=== PATIENT | female | born 1980 | race Caucasian/White ===

== ENCOUNTER 2017-10-19 11:00 | Day surgery (SDC) | payer OTHER ==
[~2017-10-19] VITALS: Ht 165.1 cm; Wt 76.7 kg
[~2017-10-19 11:00] MED LIST: ABILIFY2 MG PO; ALLEGRA60 MG PO; ALPRAZOLAM0.5 MG PO; CELEXA20 MG PO; LEVONEST1 EACH PO; LEXAPRO20 MG PO; METHYLPHENIDATE10 MG PO; NEURONTIN300 MG PO; NORCO 5-325 TA1 EACH PO; OMEPRAZOLE20 MG PO; PROPRANOLOL HCL10 MG PO; SUMATRIPTAN SUC50 MG PO; WELLBUTRIN SR100 MG PO
[2017-10-19] MEDS ORDERED: OXYCODON-ACETA1 EAC2 PO (14:34)
[2017-10-19] MEDS ORDERED: IBUPROFEN600 MG PO (14:34)
[2017-10-19] MEDS ORDERED: MAPAP325 MG PO (14:34)
--- NOTE | 2017-10-19 14:36 | NUR ---
10/19/17 1436 Kristi Alonso 1416 PT ARRIVED TO PACU DROWSY RESP EVEN AND UNLABORED ON 6L VIA MASK. PT REPORTS 5/10 PAIN AND IS MOANING. PT REORIENTED TO PACU. 1423 PAIN MEDICATION GIVEN PER EMAR. 1430 PT ASLEEP AND MORE RELAXED IN BED. PT NOT GRIMACING. 1433 PT JANE TO VERBAL STIMULI AND REPORTS PAIN 3/10 AND TOLERABEL. O2 MASK REMOVED, O2 SAT 95%.
--- NOTE | 2017-10-19 15:09 | NUR ---
ICED WATER AND JELLO GIVEN. PT IS EATING THAT AND TOLERATING IT WELL. PRN GIVEN FOR PAIN.
--- NOTE | 2017-10-19 15:52 | NUR ---
OXYGEN TURNED OFF. PT UP TO THE BR W/RN STANDBY. PT AMBULATES WELL AND DENIES DIZZINESS. PT VOIDS 800 ML CLEAR YELLOW URINE AND REQ DC HOME.
--- NOTE | 2017-10-19 16:25 | NUR ---
LE 1610: DC INSTRUCTIONS GIVEN AND PT VERBALIZES UNDERSTANDING. PT DRESSES SELF AND TOLERATES THAT WELL. PT TRANSFERS SELF TO WC AND PERSONAL VEHICLE WELL AND IS DC HOME W/SPOUSE.
--- NOTE | 2017-10-21 22:00 | OR ---
[facility] [address], [place] [address] Signed DATE OF OPERATION: 10/19/2017 SURGEON: Jhonatan Jones MD PREOPERATIVE DIAGNOSES: 1. Acalculous cholecystitis (epigastric and right subcostal pain, CCK HIDA test 25%). 2. Mixed anxiety and depressive disorder. POSTOPERATIVE DIAGNOSES: 1. Acalculous cholecystitis (epigastric and right subcostal pain, CCK HIDA test 25%). 2. Mixed anxiety and depressive disorder. PROCEDURES PERFORMED: 1. Laparoscopic cholecystectomy with intraoperative cholangiogram. 2. Surgeon-directed fluoroscopy. ANESTHESIA: General endotracheal, Franchesca Danie, SECURITY AND PRIVACY CONSULTANT, and local Marcaine 0.25% with epinephrine 20 mL. INDICATIONS FOR PROCEDURE: This 37-year-old white woman is a patient of Bebe Buitrago and has been evaluated by me number of months ago with upper abdominal pain. Evaluation had included gallbladder ultrasound, which was normal and CCK HIDA test, which showed an ejection fraction of only 25%. Concern was maintained this may be related to irritable bowel syndrome rather than the gallbladder, however. She was given a low FODMAP diet, which she was markedly improved upon and therefore plans for cholecystectomy were withheld at that time. Time has gone on and she continues to have or at least has recurring or increasingly painful right subcostal epigastric pain, more suggestive of biliary colic at this point. On that basis, I have offered cholecystectomy. She understands the risks of bleeding, infection, bile duct injury, need for open procedure, and most importantly failure to cure her symptoms. If she does have underlying irritable bowel syndrome, then cholecystectomy will not improve that particularly, but may improve her biliary colic type symptoms and we are optimistic that might be the case. On the basis of the limitations of what may be of benefit, she wishes to proceed with cholecystectomy at this time. FINDINGS: The gallbladder was chronically inflamed. There were some omental adhesions to its Electronically Signed By: JHONATAN JONES MD 10/21/17 2200 PATIENT NAME: ZITA ALDRICH OPERATIVE REPORT DATE OF : 78 REPORT #: [id number] PHYSICIAN: JHONATAN JONES MD PCP: BEBE BUITRAGO REPORT IS CONFIDENTIAL AND NOT TO BE RELEASED WITHOUT AUTHORIZATION [facility] [address] [place], [place] [address] Signed undersurface. Once excised, the gallbladder had chronic inflammatory appearance of mucosa, but no sign of stones. Cholangiogram was normal. The liver was normal. DESCRIPTION OF PROCEDURE: The patient was brought to the operating room, given a general endotracheal anesthetic. Preoperative antibiotic Ancef was given. Sequential compression device stockings were used and heparin subcutaneously administered. The abdomen was prepared with a chlorhexidine solution and draped sterilely. An infraumbilical incision was made and using an open Ashanti cannula technique, pneumoperitoneum was achieved to a level of 14 mmHg of carbon dioxide gas. Intraabdominal inspection showed no sign of ascites or carcinomatosis. The gallbladder had an appearance of chronic inflammation. Three additional trocars were placed in usual configuration in the subxiphoid, right midclavicular, and right anterior axillary line. The gallbladder was elevated cephalad and omental adhesions were taken down from the gallbladder with blunt and electrocautery dissection. The gallbladder was elevated more fully and the infundibulum was grasped and retracted laterally. Using blunt and electrocautery dissection, the triangle of Calot was dissected free identifying well the cystic duct. A clip was applied across the cystic duct gallbladder junction and a transverse choledochotomy was made in the cystic duct. Retrograde milking of the cystic duct showed clear bile. Using the Reis type cholangiocatheter, intraoperative cholangiography was undertaken showing free flow of contrast in the biliary tree with prompt emptying into the duodenum. There was no sign of filling defect, biliary anomalies, or other problem. A small pancreatogram was noted as well. It too was normal. The catheter was removed and the cystic duct was triply clipped and divided. The gallbladder was then dissected free in a retrograde fashion using electrocautery. The gallbladder was extracted through the infraumbilical port site without problem, opened on the back table, and found to have chronic inflammatory appearance of mucosa, but no sign of stones or neoplasm. Irrigation was undertaken in subhepatic cyst space. One area had a small amount of oozing was secured with electrocautery and few additional clips. Excess irrigation fluid was suctioned free and the trocars were then removed under direct visualization. The right lower abdominal 5-mm trocar site did require small amount of electrocautery for complete hemostasis. Once hemostasis was assured, plans were made for closure. The infraumbilical fascial incision was reapproximated with interrupted #0 Vicryl suture. All wounds were copiously irrigated with saline solution. A 20 mL of 0.25% Marcaine with epinephrine was injected locally. The skin was then closed with interrupted #3-0 Vicryl. Steri-Strips were applied. The patient was ultimately extubated and transferred to recovery room in good condition having suffered no complications. Sponge, needle, and instruments counts were reported as Electronically Signed By: JHONATAN JONES MD 10/21/17 2200 PATIENT NAME: JIMMIE ALDRICHN NICOLLE OPERATIVE REPORT DATE OF : 78 REPORT #: [id number] PHYSICIAN: JHONATAN JONES MD PCP: BEBE BUITRAGO REPORT IS CONFIDENTIAL AND NOT TO BE RELEASED WITHOUT AUTHORIZATION [place] [id number] [place], [place] [address] Signed correct x3. MD JUNG Hodges/TRIP /[id number] cc: COREY Pollard Copies: BEBE BUITRAGO ~ Electronically Signed By: JHONATAN JONES MD 10/21/172199 PATIENT NAME: ZITA ALDRICH OPERATIVE REPORT DATE OF : 78 REPORT #: [id number] PHYSICIAN: JHONATAN JONES MD PCP: BEBE BUITRAGO REPORT IS CONFIDENTIAL AND NOT TO BE RELEASED WITHOUT AUTHORIZATION
== END 2017-10-19 16:20 | disposition home or self-care (01) ==
LOC: DS 11:00
PROVIDERS: Surgery
PROC: BF13YZZ Fluoroscopy of Gallbladder and Bile Ducts using Other Contrast (ICD-10-PCS; 2017-10-19)
PROC: 0FT44ZZ Resection of Gallbladder, Percutaneous Endoscopic Approach (ICD-10-PCS; principal; 2017-10-19 12:45)
DX: K81.1 Chronic cholecystitis (principal); F41.8 Other specified anxiety disorders; I10 Essential (primary) hypertension; K58.0 Irritable bowel syndrome with diarrhea; Z79.899 Other long term (current) drug therapy
CPT/HCPCS: 74300; J0690; J1100; J1644; J1885; J2250; J2405; J2704; J3010; J7120; Q9967

== ENCOUNTER 2018-12-07 08:33 | Observation (INO) | payer OTHER ==
[~2018-12-07] VITALS: Ht 167.6 cm; Wt 71.5 kg
[~2018-12-07 08:33] MED LIST changes: +IBUPROFEN600 MG PO; -LEVONEST1 EACH PO; +MAPAP325 MG PO; +NUVARING VAGIN1 EACH VAGINAL; +OXYCODON-ACETA1 EAC2 PO; -WELLBUTRIN SR100 MG PO; +WELLBUTRIN XL300 MG PO
--- OUTSIDE RECORDS SUMMARY | 2018-12-07 08:36 | XMS ---
PreManage Notification: ZITA ALDRICH Security Terminal System Operator Events No recent Security Events currently on file [facility] There are no care providers on record at this time. Scarlett has no Care Guidelines for this patient. Mariah VISIT COUNT (12 MO.) 1 ISIDRA Guillen TOTAL 1 NOTE: Visits indicate total known visits. ED/UCC VISIT TRACKING (12 MO.) 12/07/2018 08:33 ISIDRA Lizama OR TYPE: Emergency COMPLAINT: - ABD PAIN INPATIENT VISIT TRACKING (12 MO.) No inpatient visits to display in this time frame [email or web address]
--- NOTE | 2018-12-07 13:49 | NUR ---
PT ARRIVES TO 122 VIA STRETCHER FROM ED. PT ABLE TO TRANSFER SELF FROM STRETCHER TO BED. PT PAINFUL, RATES PAIN 6/10 IN RLQ. PT WIPED DOWN WITH SURGICAL WIPES AND BELONGINGS PLACED IN ENVELOPE AND IN PERSONAL BELONGING BAG. SCD'S IN PLACE, CALL LIGHT WITHIN REACH.
--- NOTE | 2018-12-07 14:30 | NUR ---
PATIENT TO SURGERY AT 1430 WITH NURSE JUAN Arias
--- NOTE | 2018-12-07 16:51 | NUR ---
12/07/18 1651 Leila Tovar 1637 PT ARRIVED IN PACU SLEEPY WITH NO C/O'S. STERI STRIPS X 4 SITES CDI. 1650 OXYGEN REMOVED. SATS 94% ON RA. NO C/O'S.
--- NOTE | 2018-12-07 17:08 | HP ---
[facility] [address] [place], [place] [address] Signed ADMISSION DATE: 12/07/2018 REASON FOR ADMISSION: Acute appendicitis. HISTORY OF PRESENT ILLNESS: This 38-year-old white woman is known to me from the past having undergone laparoscopic cholecystectomy for acalculous cholecystitis on October 19, 2017. Approximately two days ago, she had some fish and began feeling rather poorly thereafter. Although unlikely related to her ultimate diagnosis, she had progression of generalized abdominal pain, ultimately nausea without vomiting. She has had some retching. She presented to the emergency room where she was thoroughly evaluated by Dr. Flores, clinically thought likely to have acute appendicitis. A CT scan was obtained, which did show markedly dilated and inflamed appendix. She is admitted for further evaluation and care. PAST MEDICAL HISTORY: Significant for anxiety and depression. Last menstrual period was October 31, 2018. PAST SURGICAL HISTORY: She has had tonsillectomy and adenoidectomy, sinus surgery, and cholecystectomy as described. ALLERGIES: She has numerous allergies including peanuts, various pollens and others. MEDICATIONS: Her current medications include ibuprofen, oxycodone, Tylenol as needed and Tylenol plain. Additionally, she takes sumatriptan, alprazolam, citalopram, NuvaRing control method, gabapentin, methylphenidate, bupropion, and propranolol. SOCIAL HISTORY: She is . She works in the school system. She lives on [address] in [place]. REVIEW OF SYSTEMS: She denies any shortness of breath or chest pain. She has had no dysphagia or dysuria. She denies any hematemesis or blood per rectum. Electronically Signed By: JHONATAN JONES MD 12/07/18 1708 PATIENT NAME: ZITA ALDRICH HISTORY AND PHYSICAL DATE OF : 78 REPORT #: [id number] PHYSICIAN: JHONATAN JONES MD PCP: BEBE BUITRAGO REPORT IS CONFIDENTIAL AND NOT TO BE RELEASED WITHOUT AUTHORIZATION [facility] [address] [place], [place] [address] Signed PHYSICAL EXAMINATION: GENERAL: Pleasant white woman who looks to be anxious as often the case. HEENT: Mucous membranes are rather dry. Trachea is midline. CHEST: Clear. HEART: Regular without murmur. ABDOMEN: Mildly obese. There is no abdominal distention. Rovsing sign is negative. She does have tenderness at McBurney's point. EXTREMITIES: Show no clubbing, cyanosis, or edema. LABORATORY STUDIES: Show white count 14.8, hematocrit 44.9, platelets 348,000. Chem profile is normal. Glucose is 148. Beta-hCG is negative. Her urinalysis is pending. I have reviewed the CT scan personally. The appendix looks markedly dilated. There was inflammation associated with this. The official report is not in the computer at this time, however. ASSESSMENT: She has clinical and radiographic evidence of acute appendicitis. Her white count is elevated as well. I recommended admission to the hospital, IV fluid resuscitation, IV antibiotics, and plan for appendectomy preferred by laparoscopic approach. The risks of bleeding, infection, need for open procedure, need for other indicated procedure, and so forth was all reviewed in detail. She understands and wished to proceed. Jhonatan Jones MD JM/MODL /[id number] cc: Cole Flores MD Copies: COLE FLORES MD ~ Electronically Signed By: JHONATAN JONES MD 12/07/18 1708 PATIENT NAME: ZITA ALDRICH HISTORY AND PHYSICAL DATE OF : 78 REPORT #: [id number] PHYSICIAN: JHONATAN JONES MD PCP: BEBE BUITRAGO REPORT IS CONFIDENTIAL AND NOT TO BE RELEASED WITHOUT AUTHORIZATION
--- NOTE | 2018-12-07 17:42 | NUR ---
PT ARRIVES TO MED SURG RM 122 FROM PACU. PT AWAKE AND ALERT, RESP EVEN AND UNLABORED. PT DENIES NAUSEA AND RATES PAIN 2/10 IN ABD AREA. PT MOTHER AT BEDSIDE. PT ABLE TO SIP WATER WITH NO PROBLEM. DINNER ORDERED FOR PATIENT TO TAKE WITH ORAL FLAGYL. CALL LIGHT WITHIN REACH.
--- NOTE | 2018-12-07 18:08 | NUR ---
PT TRANSFERRED FROM ED TODAY FOR ACUTE APPENDICITIS AND TAKEN TO OR PER DR. JONES. PT BACK TO RM 122 FROM PACU, ALERT AND ORIENTED. PT DENIES ANY NAUSEA AND PAIN IS MINIMAL 2/10 IN ABD. PT HAS 4 TROCAR SITES WITH STERI STRIPS IN PLACE WITH SCANT RED DRAINAGE PRESENT. PT TOLERATES WATER, DINNER ORDERED FOR ORAL ABX. MOTHER IN ROOM AT BEDSIDE.
--- NOTE | 2018-12-07 18:38 | NUR ---
PT TOLERATES COTTAGE CHEESE AND YOGURT WELL, ORAL ABX ADMIN.
--- NOTE | 2018-12-07 19:30 | NUR ---
ROUNDED CHARGE. PATIENT IS BEING ASSISTED TO THE RESTROOM BY JOESPH THAKKAR. PATIENT DENIES ANY COMMNETS, QUESTIONS OR CONCERNS. NO NEEDS NOTED CALL LIGHT IN REACH.
--- NOTE | 2018-12-07 19:45 | NUR ---
UP TO BR, VOIDED, DARK YELLOW URINE, TOLERATED WELL, BACK TO BED. MEDICATED WITH NORCO 7.5MG C/O ABD PAIN 6/10. [address], UMBILICAL AND R SIDED SS WITH SMALL AMOUNT FRESH DRAINAGE, LISA, TENDER ABD, DENIES S/SX N/V. IVF INFUSING. MED TEACHING OF HS MEDS DONE. QUESTIONS ANSWERED TO HER SATISFACTION/ ONROOM AIR, SCDS IN PLACE
--- NOTE | 2018-12-07 20:37 | NUR ---
PATIENTS LAST SET OF POST OP VITALS COMPLETED. PATIENT IS RESTING IN BED ON CELLPHONE. PATIENT RATES PAIN AT A 7/10. PATIENT IS REQUESTIING PAIN MEDICATION. PATIENT GIVEN SECOND TAB OF PRN PAIN MEDICATION PER ORDER. THIS WAS DISCUSSED WITH JOESPH BRUNER RN. PATIENT DENIES ANY FURTHER NEEDS. CALL LIGHT IN REACH.
--- NOTE | 2018-12-07 20:45 | NUR ---
awake, IVF infusing. call light at bedside
--- NOTE | 2018-12-08 00:22 | NUR ---
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 Denies c/o pain. IVf infusing w/o problems, abd ss in place, nofurther requests
--- NOTE | 2018-12-08 05:27 | NUR ---
pt up to br, voided, back to bed, C/o abd pain 5/10 medicated with Ibuprofen 600mg po. abd ss strips in place, denies passing gas, scds off at this time as pt was very itchy, feeling better now. toleratrinv fluids well, call light, cpox in place, sats 94%
--- NOTE | 2018-12-08 05:29 | NUR ---
Has been walking in room, anxious, reassured, feels better. not passing gas yet, abd 4 lap sites incision w ss old drainage over belly button and r side. no new one noted. scds off as pt was very itchy earlier, tolerating fluids and reg diet well. Medicated with Ibuprofen x1 and Mccracken with good pain relief. Cpox in place sats 94% room air. call light at bedside
--- NOTE | 2018-12-08 07:19 | NUR ---
PT RESTING SUPINE IN BED, EYES CLOSED NAD RESPIRATIONS EVEN AND UNLABORED. PT APPEARS TO BE SLEEPING COMFORTABLY. CALL LIGHT AND H2O IN REACH. REPORT RECEIVED FROM BIJAN PINK.
--- NOTE | 2018-12-08 08:32 | NUR ---
PT RESTING IN SEMI FOWLERS POSITION WATCHING TV. PT ALERT AND OREIENTED, REPORTS 7/10 ABD PAIN SO PRN PO PERCOCET ADMINISTERED - SEE EMAR. PT ASSESSME NT COMPLETED. CALL LIGHT AND H2O IN REACH. PT DENIES FURTHER NEEDS/CONCERNS.
[2018-12-08] MEDS ORDERED: IBUPROFEN600 MG PO (09:18)
[2018-12-08] MEDS ORDERED: OXYCODON-ACETA1 EAC2 PO (09:18)
[2018-12-08] MEDS ORDERED: TYLENOL EXTRA500 MG PO (09:18)
[2018-12-08] MEDS ORDERED: FLONASE SENSIM5.9 ML NAS (09:34)
[2018-12-08] MEDS ORDERED: VITAMIN D-32000 UNIT PO (09:35)
[2018-12-08] MEDS ORDERED: MULTI VITAMIN1 EACH PO (09:35)
[2018-12-08] MEDS ORDERED: MAG-AMIDE SR 51 EACH PO ×2 (09:36)
[2018-12-08] MEDS ORDERED: FISH OIL 1,0001 EAC2 PO (09:37)
[2018-12-08] MEDS ORDERED: CO Q-1050 MG PO (09:37)
[2018-12-08] MEDS ORDERED: TURMERIC500 M2 PO (09:37)
[2018-12-08] MEDS ORDERED: SAM-E400 MG PO (09:37)
[2018-12-08] MEDS ORDERED: PROBIOTIC1 EAC1 PO (09:38)
[2018-12-08] MEDS ORDERED: VITAMIN C 500500 MG PO (09:38)
--- NOTE | 2018-12-08 09:40 | NUR ---
MED REC COMPLETE
--- NOTE | 2018-12-08 09:46 | NUR ---
PATIENT SITTING IN HIGH FOWLERS POSITION. PATIENT ATE BREAKFAST. WARM WASH CLOTH OFFERED, LINENS CHANGED. CALL LIGHT WITHIN REACH. NO FURTHER NEEDS AT THIS TIME.
--- NOTE | 2018-12-09 17:19 | OR ---
[facility] [address] [place], [place] [address] Signed DATE OF OPERATION: 12/07/2018 SURGEON: Jhonatan Jones MD PREOPERATIVE DIAGNOSIS: Acute appendicitis. POSTOPERATIVE DIAGNOSES: 1. Severe acute appendicitis without perforation. 2. Right pericolic gutter inflammatory changes and exudative changes. PROCEDURE: Laparoscopy with laparoscopic appendectomy. ANESTHESIA: General endotracheal by Jhonatan Drew CRNA, and local 10 mL of 0.25% Marcaine with epinephrine. INDICATION: The patient is 38-year-old white woman, presented to the emergency room this afternoon and was evaluated by Dr. Cole Powell. She is known to me from the past having undergone laparoscopic cholecystectomy previously. She was found to have marked tenderness in the right lower quadrant. A CT scan was performed confirming a markedly dilated appendix and findings consistent with acute appendicitis. There was no sign of hepatic abnormality. There was surgical absence of the gallbladder as expected. She has been fluid resuscitated, given intravenous antibiotics, and is now to undergo appendectomy, preferably by a laparoscopic approach. The risks of bleeding, infection, need for open procedure and other unforeseen complications were reviewed in detail with her. She understands and wished to proceed. FINDINGS: Somewhat surprisingly, there was extensive inflammatory exudative filminess over the cecum and areas of the right pericolic gutter and even a bit at the liver. There was no sign of carcinomatosis proper. The appendix was markedly dilated and quite inflamed, but without sign of perforation. There was no sign of perforated ulcer or stomach in the areas examined. Appendectomy was ultimately performed and upon opening the appendix, the marked inflammatory change of the mucosa was notable and a slight suspicion regarding malignancy and is maintained on my part at this point. The uterus and right tube and ovary were identified as normal. There was no sign of pelvic neoplasm or other abnormality. Electronically Signed By: JHONATAN JONES MD 12/09/18 1719 PATIENT NAME: ZITA ALDRICH OPERATIVE REPORT DATE OF : 78 REPORT #: [id number] PHYSICIAN: JHONATAN JONES MD PCP: BEBE BUITRAGO REPORT IS CONFIDENTIAL AND NOT TO BE RELEASED WITHOUT AUTHORIZATION [facility] [address] [place], [place] [address] Signed DESCRIPTION OF PROCEDURE: The patient was brought to the operating room, given a general endotracheal anesthetic. Preoperative antibiotic, cefotetan had been given. Sequential compression device stockings used and heparin not given in the operating room. After satisfactory general endotracheal anesthesia, the abdomen was prepared with a chlorhexidine solution and draped sterilely. The previous infraumbilical incision site was used for entry into the abdomen using an open Ashanti cannula technique. Pneumoperitoneum was achieved to a level of 14 mmHg of carbon dioxide gas. Intraabdominal inspection showed surprising amount of fibrinous exudate over the right pericolic gutter and the cecal area as well as a bit of the liver even. There was no sign of carcinomatosis proper. There was no sign of mucinous neoplastic change either. There appeared to be a minimal herniation of omentum through the previous epigastric trocar site. An incision was made at the same site and a 12 mm port placed there. The angled laparoscope was withdrawn and placed in that site. One hand manipulation of the right pericolic gutter was undertaken, ultimately identifying a markedly inflamed and dilated and congested appendix. An initial right lower quadrant 5 mm trocar was placed, but it was too high to be as much use as could be and therefore, another trocar was placed in the suprapubic area. Notably, the patient had voided prior to operation. With two-hand manipulation, the cecum was gently freed from the pelvic sidewall and was noted to be edematous. A filmy exudate was irrigated free and gently manipulated as well. The mesoappendix was markedly thickened, as was the appendix itself, dilated more than to near average acute appendicitis. With electrocautery, the mesoappendix was dissected free diminishing its thickness to allow ultimately for the application of the Endo-NISA stapling device with a vascular load. This transected the vascular supply quite well to the appendix. The appendix was skeletonized and again using an Endo-NISA stapler, the appendix was transected, flushed with the cecum. The appendix was placed in an endobag and extracted through the infraumbilical port site without problem, opened on the back table by the circulating nurse. The mucosal appearance was somewhat suspicious actually, but there was no sign of fecalith. Photographs were taken. Irrigation was undertaken in the right lower abdomen. There was no sign of untoward bleeding in the staple line of the mesoappendix or the cecum itself. Excess irrigation fluid was suctioned free and fibrinous peel was suctioned free as well. Examination of the pelvic organ showed a normal uterus, tube, and right ovary. The camera was replaced to the epigastric port and the suctioning device placed over the liver, allowing for suctioning of subphrenic fluid and a bit of proteinaceous intravenous peel. The trocar at the epigastric area was removed under direct Electronically Signed By: JHONATAN JONES MD 12/09/18 5746 PATIENT NAME: ZITA ALDRICH NICOLLE OPERATIVE REPORT DATE OF : 78 REPORT #: [id number] PHYSICIAN: JHONATAN JONES MD PCP: BEBE BUITRAGO REPORT IS CONFIDENTIAL AND NOT TO BE RELEASED WITHOUT AUTHORIZATION [facility] [address] [place], [place] [address] Signed visualization showing no sign of bleeding. The infraumbilical fascial incision was reapproximated with interrupted 0 Vicryl suture after removal of the Ashanti cannula. All wounds were copiously irrigated with saline solution and skin closed with interrupted 3-0 Vicryl. A 10 mL of 0.25% Marcaine with epinephrine were injected locally. Steri-Strips were applied. The patient was ultimately extubated and transported to recovery room in good condition having suffered no complications. Sponge, needle, and instrument counts were reported as correct x3. MD JUNG Hodges/MODL /[id number] cc: COREY Pollard MD Copies: BEBE BUITRAGO WILLIAM S MD ~ Electronically Signed By: JHONATAN JONES MD 12/09/18 1719 PATIENT NAME: ZITA ALDRICH OPERATIVE REPORT DATE OF : 78 REPORT #: [id number] PHYSICIAN: JHONATAN JONES MD PCP: BEBE BUITRAGO REPORT IS CONFIDENTIAL AND NOT TO BE RELEASED WITHOUT AUTHORIZATION
== END 2018-12-08 10:20 | disposition home or self-care (01) ==
LOC: ED 08:33 → MS 12:28
PROVIDERS: ADMIT Surgery
PROC: 0DTJ4ZZ Resection of Appendix, Percutaneous Endoscopic Approach (ICD-10-PCS; principal; 2018-12-07 14:00)
DX: K35.80 Unspecified acute appendicitis (principal); F41.8 Other specified anxiety disorders; Z79.1 Long term (current) use of non-steroidal anti-inflammatories (NSAID); Z79.891 Long term (current) use of opiate analgesic; Z79.899 Other long term (current) drug therapy
CPT/HCPCS: 00840; 74177; 80053; 83690; 84703; 85025; 96361; 96372; 99285-25; G0378; J0330; J1100; J1170; J1644; J1885; J2250; J2405; J2704; J2765; J3010; J7030; J7060; J7120; Q9967